=== PATIENT | male | born 1990 | race Caucasian/White ===

== ENCOUNTER 2016-08-28 12:32 | Emergency (ER) | payer OTHER ==
[~2016-08-28] VITALS: Ht 162.5 cm; Wt 63.5 kg
[~2016-08-28 12:32] MED LIST: CIPRO500 MG PO; DARVOCET N 1001 TAB PO; DAYPRO600 M1 PO; MOTRIN800 MG PO; VIBRAMYCIN100 MG PO
[2016-08-28 13:33] LABS: BILIRUBIN NEGATIVE (NEGATIVE); BLOOD NEGATIVE (NEGATIVE); CLARITY CLOUDY (CLEAR); COLOR YELLOW (YELLOW); GLUCOSE NEGATIVE (NEGATIVE); KETONE NEGATIVE (NEGATIVE); LEUKO ESTERASE NEGATIVE (NEGATIVE); NITRITE NEGATIVE (NEGATIVE); PROTEIN NEGATIVE (NEGATIVE)
[2016-08-28 13:40] LABS: BACTERIA 1+
[2016-08-28 13:41] LABS: URINE REFLEX COMMENT YES (NO)
== END 2016-08-28 14:17 | disposition home or self-care (01) ==
LOC: ED 12:32
PROVIDERS: Emergency Medicine
DX: Z20.2 Contact with and (suspected) exposure to infections with a predominantly sexual mode of transmission (principal); F17.200 Nicotine dependence, unspecified, uncomplicated; Z88.6 Allergy status to analgesic agent

== ENCOUNTER 2017-07-25 13:03 | Emergency (ER) | payer OTHER ==
[2017-07-25] MEDS ORDERED: LORAZEPAM0.5 MG PO (13:29)
[2017-07-25] MEDS ORDERED: PRAZOSIN HCL1 MG PO (13:30)
== END 2017-07-25 15:38 | disposition home or self-care (01) ==
LOC: ED 13:03
DX: S61.214A Laceration without foreign body of right ring finger without damage to nail, initial encounter (principal); S60.410A Abrasion of right index finger, initial encounter; Z79.899 Other long term (current) drug therapy; Z88.5 Allergy status to narcotic agent; W14.XXXA Fall from tree, initial encounter; Y93.89 Activity, other specified; Y92.89 Other specified places as the place of occurrence of the external cause; Y99.8 Other external cause status

== ENCOUNTER 2017-09-29 17:12 | Emergency (ER) | payer SELFPAY ==
[~2017-09-29] VITALS: Ht 162.5 cm; Wt 63.5 kg
[~2017-09-29 17:12] MED LIST changes: +LORAZEPAM0.5 MG PO; +PRAZOSIN HCL1 MG PO
== END 2017-09-29 17:51 | disposition home or self-care (01) ==
LOC: ED 17:12
DX: L55.1 Sunburn of second degree (principal); F17.200 Nicotine dependence, unspecified, uncomplicated; Z79.899 Other long term (current) drug therapy; Z88.5 Allergy status to narcotic agent

== ENCOUNTER 2017-10-29 17:35 | Emergency (ER) | payer OTHER ==
[~2017-10-29] VITALS: Ht 160 cm; Wt 63.5 kg
[2017-10-29] MEDS ORDERED: AMOXICILLIN500 M2 PO (17:56)
== END 2017-10-29 17:56 | disposition home or self-care (01) ==
LOC: ED 17:35
DX: H66.93 Otitis media, unspecified, bilateral (principal); Z88.5 Allergy status to narcotic agent; Z79.899 Other long term (current) drug therapy

== ENCOUNTER 2018-01-20 16:08 | Emergency (ER) | payer SELFPAY ==
[~2018-01-20] VITALS: Ht 160 cm; Wt 63.5 kg
[~2018-01-20 16:08] MED LIST changes: +AMOXICILLIN500 M2 PO
[2018-01-20] MEDS ORDERED: PROVENTIL HFA6.7 GM INH (17:00)
[2018-01-20] MEDS ORDERED: PREDNISONE20 M1 PO (17:00)
[2018-01-20] MEDS ORDERED: TESSALON PERLE100 M1 PO (17:00)
[2018-02-04] MEDS ORDERED: CLINDAMYCIN150 MG PO (17:56)
[2018-02-04] MEDS ORDERED: ZOFRAN4 MG PO (17:56)
[2018-02-04] MEDS ORDERED: NAPROSYN500 MG PO (17:56)
== END 2018-01-20 17:06 | disposition home or self-care (01) ==
LOC: ED 16:08
DX: J40 Bronchitis, not specified as acute or chronic (principal); Z88.6 Allergy status to analgesic agent

== ENCOUNTER 2019-06-07 10:48 | Emergency (ER) | payer SELFPAY ==
[~2019-06-07] VITALS: Ht 160 cm; Wt 63.5 kg
[~2019-06-07 10:48] MED LIST changes: +CLINDAMYCIN150 MG PO; +NAPROSYN500 MG PO; +PREDNISONE20 M1 PO; +PROVENTIL HFA6.7 GM INH; +TESSALON PERLE100 M1 PO; +ZOFRAN4 MG PO
[2019-06-07] MEDS ORDERED: AMOXICILLIN500 M2 PO (11:56)
[2019-06-07] MEDS ORDERED: IBUPROFEN600 MG PO (11:56)
== END 2019-06-07 12:27 | disposition home or self-care (01) ==
LOC: ED 10:48
DX: K02.9 Dental caries, unspecified (principal); Z88.6 Allergy status to analgesic agent

== ENCOUNTER 2022-01-16 05:56 | Emergency (ER) | payer OTHER ==
[~2022-01-16] VITALS: Ht 162.5 cm; Wt 65.8 kg
[~2022-01-16 05:56] MED LIST changes: +IBUPROFEN600 MG PO
[2022-01-16 06:54] LABS: BASO % 0.5 % (0.0-1.0); EOS # 0.2 10*3/uL (0.0-0.4); EOS % 3.8 % (1.0-4.0); HEMATOCRIT 40.7 % (42.0-52.0); LYMPH # 1.8 10*3/uL (1.3-4.4); LYMPH % 31.6 % (27.0-41.0); MEAN CELL VOLUME 88.3 fl (80.0-94.0); MEAN CORPUSCULAR HGB 30.8 pg (27.0-31.0); MEAN CORPUSCULAR HGB CONC 34.9 g/dl (33.0-37.0); MEAN PLATELET VOLUME 9.3 fl (9.6-12.3); MONO # 0.6 10*3/uL (0.1-1.0); MONO % 10.1 % (3.0-9.0); NEUT # 3.1 10*3/uL (2.3-7.9); NEUT % 53.7 % (47.0-73.0); PLATELET COUNT AUTOMATED 204 10*3/uL (130-400); RED BLOOD COUNT 4.61 10*6/uL (4.50-5.90); WHITE BLOOD COUNT 5.7 10*3/uL (4.8-10.8)
[2022-01-16 07:09] LABS: BUN 17 mg/dl (7-24); CHLORIDE 109 mmol/L (98-107); CREATININE 1.06 mg/dL (0.70-1.30); POTASSIUM 4.1 mmol/L (3.5-5.1); SODIUM 140 mmol/L (136-145)
[2022-01-16] MEDS ORDERED: ZITHROMAX250 MG PO (08:05)
== END 2022-01-16 08:52 | disposition home or self-care (01) ==
LOC: ED 05:56
PROVIDERS: Emergency Medicine
DX: J20.9 Acute bronchitis, unspecified (principal); Z20.822 Contact with and (suspected) exposure to COVID-19; Z88.8 Allergy status to other drugs, medicaments and biological substances

== ENCOUNTER 2024-08-11 14:22 | Emergency (ER) | payer SELFPAY ==
[~2024-08-11] VITALS: Ht 162.5 cm; Wt 72.6 kg
[~2024-08-11 14:22] MED LIST changes: +ZITHROMAX250 MG PO
[2024-08-11] MEDS ORDERED: SODIUM CHLORIDE 0.9% 1,000 ML IV ONE (14:50)
[2024-08-11] MEDS ORDERED: HYDROmorphONE Hydrochloride 0.5 MG/0.5 ML SYRINGE IV ONE (14:50)
[2024-08-11] MEDS ORDERED: Ondansetron Hydrochloride 4 MG/2 ML VIAL IV ONE (14:50)
[2024-08-11 14:57] LABS: BASO % 0.5 % (0.0-1.0); EOS # 0.3 10*3/uL (0.0-0.4); EOS % 3.4 % (1.0-4.0); HEMATOCRIT 41.5 % (42.0-52.0); MEAN CELL VOLUME 86.5 fl (80.0-94.0); MEAN CORPUSCULAR HGB 29.8 pg (27.0-31.0); MEAN CORPUSCULAR HGB CONC 34.5 g/dl (33.0-37.0); MEAN PLATELET VOLUME 9.4 fl (9.6-12.3); MONO # 0.5 10*3/uL (0.1-1.0); MONO % 5.9 % (3.0-9.0); NEUT # 5.2 10*3/uL (2.3-7.9); PLATELET COUNT AUTOMATED 278 10*3/uL (130-400)
[2024-08-11 15:23] LABS: ALKALINE PHOSPHATASE 100 U/L (46-116); BUN 17 mg/dl (9-23); CHLORIDE 102 mmol/L (98-107); LIPASE 34 U/L (12-53); SGPT/ALT 37 U/L (5-49); TOTAL PROTEIN 7.3 gm/dL (6.0-8.0)
[2024-08-11] MEDS ORDERED: CIPRO500 MG PO (16:30)
[2024-08-11] MEDS ORDERED: Ondansetron4 MG PO (16:30)
== END 2024-08-11 16:52 | disposition home or self-care (01) ==
LOC: ED 14:22
PROVIDERS: Nurse Practitioner Family
DX: K52.9 Noninfective gastroenteritis and colitis, unspecified (principal); R11.2 Nausea with vomiting, unspecified; R05.9 Cough, unspecified; R10.12 Left upper quadrant pain; Z88.8 Allergy status to other drugs, medicaments and biological substances; Z79.899 Other long term (current) drug therapy; Z20.822 Contact with and (suspected) exposure to COVID-19

== ENCOUNTER 2024-12-13 12:31 | Emergency (ER) | payer BC ==
[~2024-12-13] VITALS: Ht 162.5 cm; Wt 72.6 kg
[~2024-12-13 12:31] MED LIST changes: +Ondansetron4 MG PO
[2024-12-13] MEDS ORDERED: Dexamethasone Sodium Phospha 10 MG/1 ML VIAL IV ONE (12:55)
[2024-12-13] MEDS ORDERED: SODIUM CHLORIDE 0.9% 1,000 ML IV ONE (12:55)
[2024-12-13] MEDS ORDERED: diphenhydrAMINE hydrochloride 50 MG/ML VIAL IV ONE (12:55)
[2024-12-13] MEDS ORDERED: Ondansetron Hydrochloride 4 MG/2 ML VIAL IV ONE (12:55)
[2024-12-13] MEDS ORDERED: FAMOTIDINE 50 ML IV ONE ×2 (12:55)
== END 2024-12-13 13:30 | disposition left against medical advice (07) ==
LOC: ED 12:31
DX: T63.441A Toxic effect of venom of bees, accidental (unintentional), initial encounter (principal); R42 Dizziness and giddiness; R11.10 Vomiting, unspecified; R06.02 Shortness of breath; R11.0 Nausea; Z88.8 Allergy status to other drugs, medicaments and biological substances; Z53.29 Procedure and treatment not carried out because of patient's decision for other reasons; Y92.89 Other specified places as the place of occurrence of the external cause